=== PATIENT | female | born 1985 | race Hispanic/Latino ===

== ENCOUNTER → 2018-11-02 | Day surgery (SDC) | payer SELFPAY ==
[~2018-11-02] MED LIST: ADDERALL 30 MG30 MG PO; BACITRACIN 50,000 UNIT VIAL ONE; CEFAZOLIN SOD 1 GM VIAL ONE; CEFAZOLIN SOD 2 GM/D5W 50ML 50 ML IV ONE; DEXAMETHASONE SOD PHOS INJ 4 MG/ML VIAL ONE; FENTANYL CITRATE/PF 100MCG/2 ML INJ ONE; GENTAMICIN SULFATE 40 MG/ML 2 ML VIAL ONE; HYDROMORPHONE 2MG/ML 2 MG/ML ML ONE; IBUPROFEN 800MG/ 250ML 250 ML IV ONE; LIDOCAINE HCL 2% LOCAL INJ 5 ML SDV VIAL INJ ONE; MIDAZOLAM HCL 2 MG/2 ML VIAL ONE; ONDANSETRON HCL INJ 2MG/ML 2ML 2 MG/ML VIAL ONE; PROPOFOL IV EMULSION 10 MG/ML 20 ML VIAL ONE; SEVOFLURANE INHAL SOLN 250 ML PEN BTL ONE
--- OUTSIDE RECORDS SUMMARY | 2018-11-02 05:43 | XMS REPORT | Clinical Summary ---
Author Author [facility] Address Unknown Phone Unavailable Care Team Providers Care Blade Boner Name Role Phone Otilio Horn MD PCP Unavailable Allergies No Known Allergies Medications No known medications Active Problems No known active problems Encounters Care Team Description Date Type Specialty [facility] Physical exam (Primary Dx) 07/14/2018 [facility] Otilio Horn MD Abnormal mammogram 07/08/2018 Hospital Radiology Encounter Karon Jalloh MD Physical exam (Primary Dx) 07/02/2018 [facility] Physical Otilio Horn MD 06/29/2018 Hospital Radiology Encounter Otilio Horn MD 06/29/2018 [facility] Radiology Encounter Otilio Horn MD Abnormal mammogram (Primary Dx) 06/28/2018 Transcribe Access Orders Otilio Horn MD 12/30/2017 Hospital Radiology Encounter Otilio Horn MD 12/30/2017 Hospital Radiology Encounter Otilio Horn MD Mastodynia (Primary Dx) 12/30/2017 Transcribe Access Orders Otilio Horn MD Cervicalgia (Primary Dx) 12/28/2017 Transcribe Access Orders after 11/01/2017 Family History Medical History Relation Name Comments No Known Problems Father No Known Problems Mother Relation Name Status Comments Father Alive Mother Alive Social History Date Tobacco Use Types Packs/Day Years Used Never Smoker Smokeless Tobacco: Never Used Alcohol Use Drinks/Week oz/Week Comments Yes Sex Assigned at Date Recorded Not on file Industry Job Start Date Occupation Not on file Not on file Not on file Travel End Travel History Travel Start No recent travel history available. Last Filed Vital Signs Time Taken Vital Sign Reading 07/02/2018 9:09 AM COMPUTER HARDWARE ENGINEER Blood Pressure 102/68 07/02/2018 9:09 AM COMPUTER HARDWARE ENGINEER Pulse 80 - Temperature - - Respiratory Rate - - Oxygen Saturation - - Inhaled Oxygen - Concentration 07/02/2018 9:09 AM COMPUTER HARDWARE ENGINEER Weight 48.6 kg (107 lb 3.2 oz) 07/02/2018 9:09 AM COMPUTER HARDWARE ENGINEER Height 152.4 cm (5') 07/02/2018 9:09 AM COMPUTER HARDWARE ENGINEER Body Mass Index 20.94 Plan of Treatment Health Maintenance Due Date Last Done Comments INFLUENZA VACCINE 12/23/2018 Procedures Comments Procedure Name Priority Date/Time Associated Diagnosis COMPREHENSIVE METABOLIC Routine 07/14/2018 Physical exam PANEL 10:21 AM COMPUTER HARDWARE ENGINEER URINALYSIS, AUTOMATED Routine 07/14/2018 Physical exam WITH MICROSCOPY 10:21 AM COMPUTER HARDWARE ENGINEER CBC WITH PLATELET AND Routine 07/14/2018 Physical exam DIFFERENTIAL 10:21 AM COMPUTER HARDWARE ENGINEER LIPID PANEL Routine 07/14/2018 Physical exam 10:21 AM COMPUTER HARDWARE ENGINEER MRI BREAST WO CONTRAST Routine 07/08/2018 Abnormal mammogram BILATERAL 10:16 AM COMPUTER HARDWARE ENGINEER HEMOGLOBIN A1C Routine 07/02/2018 Physical exam 8:56 AM COMPUTER HARDWARE ENGINEER COMPREHENSIVE METABOLIC Routine 07/02/2018 Physical exam PANEL 8:56 AM COMPUTER HARDWARE ENGINEER URINALYSIS, AUTOMATED Routine 07/02/2018 Physical exam WITH MICROSCOPY 8:56 AM COMPUTER HARDWARE ENGINEER T4, FREE Routine 07/02/2018 Physical exam 8:56 AM COMPUTER HARDWARE ENGINEER THYROID STIMULATING Routine 07/02/2018 Physical exam HORMONE 8:56 AM COMPUTER HARDWARE ENGINEER CBC WITH PLATELET AND Routine 07/02/2018 Physical exam DIFFERENTIAL 8:56 AM COMPUTER HARDWARE ENGINEER LIPID PANEL Routine 07/02/2018 Physical exam 8:56 AM COMPUTER HARDWARE ENGINEER MAMMO EXTERNAL STUDY Routine 06/29/2018 12:49 PM COMPUTER HARDWARE ENGINEER US BREAST EXTERNAL STUDY Routine 06/29/2018 12:44 PM COMPUTER HARDWARE ENGINEER US BREAST EXTERNAL STUDY Routine 12/30/2017 11:33 AM CDT MAMMO EXTERNAL STUDY Routine 12/30/2017 11:32 AM CDT after 11/01/2017 Results * Urinalysis, automated with microscopy (07/14/2018 10:21 AM COMPUTER HARDWARE ENGINEER) Only the most recent of 2 results within the time period is included. Color, UA YELLOW YELLOW [facility] [place] Appearance CLEAR CLEAR [facility] [place] Specific 1.017 1.001 - 1.035 [facility] gravity, urine [facility] [place] pH, urine 6.0 5.0 - 8.0 [facility] [place] Glucose, urine NEGATIVE NEGATIVE [facility] [place] Bilirubin, UA NEGATIVE NEGATIVE [facility] [place] Ketones, UA NEGATIVE NEGATIVE [facility] [place] Occult blood, NEGATIVE NEGATIVE [facility] urine [facility] [place] Protein, UA NEGATIVE NEGATIVE [facility] [place] Nitrite, UA NEGATIVE NEGATIVE [facility] [place] Leukocyte NEGATIVE NEGATIVE [facility] esterase, UA [facility] [place] WBC, UA 0-5 < OR=5 /HPF [facility] [place] RBC, UA NONE SEEN < OR=2 /HPF [facility] [place] Squamous 0-5 < OR=5 /HPF [facility] epithelial [facility]AGNOSTICS cells, UA [place] Bacteria, UA NONE SEEN NONE SEEN /HPF [facility] [place] Hyaline casts, NONE SEEN NONE SEEN /LPF [facility] UA [facility] [place] Specimen Blood Resulting Agency Comment Performing Organization Information: Site ID: [id number] Name: [facility] Address: [address] [place] [phone] Director: Jenna Quan Performing Organization Address City/State/Zipcode Phone Number [facility] [address] [address] * CBC with platelet and differential (07/14/2018 10:21 AM COMPUTER HARDWARE ENGINEER) Only the most recent of 2 results within the time period is included. WBC 5.0 3.8 - 10.8 [facility] Thousand/uL [employer] [place] RBC 4.12 3.80 - 5.10 [facility] Million/uL [facility] [place] HGB 13.8 11.7 - 15.5 g/dL [facility] [place] HCT 40.6 35.0 - 45.0 % [facility] [place] MCV 98.5 80.0 - 100.0 fL [facility] [place] MCH 33.5 (H) 27.0 - 33.0 pg [facility] [place] MCHC 34.0 32.0 - 36.0 g/dL [facility] RDW 11.8 11.0 - 15.0 % [facility] [place] Platelet count 247 140 - 400 [facility] Thousand/uL [facility] MPV 10.1 7.5 - 12.5 fL [facility] [place] Neutrophils, 2,420 1,500 - 7,800 [facility] absolute cells/uL [facility] [place] Lymphocytes, 2,010 850 - 3,900 cells/uL [facility] absolute [facility] [place] Monocytes, 410 200 - 950 cells/uL [facility] absolute [facility] [place] Eosinophils, 110 15 - 500 cells/uL [facility] absolute [facility] [place] Basophils, 50 0 - 200 cells/uL [facility] absolute [facility] [place] Neutrophils 48.4 % [facility] Lymphocytes 40.2 % [facility] [place] Monocytes 8.2 % [facility] [place] Eosinophils 2.2 % [employer] [place] Basophils + RC 1.0 % [employer] [place] Specimen Blood Resulting Agency Comment Performing Organization Information: Site ID: [id number] Name: [facility] Address: [address] [place] [phone] Director: Jenna Quan Performing Organization Address City/State/Zipcode Phone Number [place] [phone] * Lipid panel (07/14/2018 10:21 AM COMPUTER HARDWARE ENGINEER) Only the most recent of 2 results within the time period is included. [facility] Cholesterol, 182 <200 mg/dL [facility] total [facility] [place] HDL cholesterol 76 >50 mg/dL [facility] [place] Triglycerides 62 <150 mg/dL [facility] LDL cholesterol 92 mg/dL (calc) [facility] calculated Comment: DIAGNOSTICS Reference range: <100 [place] Desirable range <100 mg/dL for primary prevention; <70 mg/dL for patients with CHD or diabetic patients with > or=2 CHD risk factors. LDL-C is now calculated using the Vinod-Tarsha calculation, which is a validated novel method providing better accuracy than the Friedewald equation in the estimation of LDL-C. Vinod SS et al. MAGDY. 2013;310(19): 6820-4536 (http://education.Typesafe.com/faq/KIJ428) Cholesterol/HDL 2.4 <5.0 (calc) [facility] ratio [facility] [place] Non-HDL 106 <130 mg/dL (calc) [facility] cholesterol Comment: DIAGNOSTICS For patients with diabetes [place] plus 1 major ASCVD risk factor, treating to a non-HDL-C goal of <100 mg/dL (LDL-C of <70 mg/dL) is considered a therapeutic option. Specimen Blood Resulting Agency Comment Performing Organization Information: Site ID: [id number] Name: [facility] Address: [address] [place] [address] Director: Jenna Quan Performing Organization Address City/State/Zipcode Phone Number [facility] [address] [place] [address] * Comprehensive metabolic panel (07/14/2018 10:21 AM COMPUTER HARDWARE ENGINEER) Only the most recent of 2 results within the time period is included. Glucose 105 (H) 65 - 99 mg/dL [facility] Comment: DIAGNOSTICS [facility] reference interval For someone without known diabetes, a glucose value between 100 and 125 mg/dL is consistent with prediabetes and should be confirmed with a follow-up test. BUN, whole 11 7 - 25 mg/dL [facility] blood [facility] Creatinine 0.64 0.50 - 1.10 mg/dL [facility] EGFR Non-Afr. 117 > OR=60 [facility] [place]ian mL/min/1.73m2 [facility] [place] EGFR 136 > OR=60 [facility] [place] mL/min/1.73m2 [facility] [place] BUN/creatinine NOT APPLICABLE 6 - 22 (calc) [facility] ratio [facility] Sodium 140 135 - 146 mmol/L [facility] [place] Potassium 4.6 3.5 - 5.3 mmol/L [facility] [place] Chloride 104 98 - 110 mmol/L [facility] [place] CO2 29 20 - 32 mmol/L [facility] [place] Calcium 9.2 8.6 - 10.2 mg/dL [facility] [place] Protein 7.4 6.1 - 8.1 g/dL [facility] [place] Albumin, S 4.6 3.6 - 5.1 g/dL [facility] [place] Globulin, total 2.8 1.9 - 3.7 g/dL [facility] (calc) [facility] Albumin/globuli 1.6 1.0 - 2.5 (calc) [facility] n ratio [facility] Total bilirubin 0.6 0.2 - 1.2 mg/dL [facility] [place] Alkaline 47 33 - 115 U/L [facility] phosphatase [facility] AST 20 10 - 30 U/L [facility] [place] ALT 19 6 - 29 U/L [facility] Specimen Blood Resulting Agency Comment Performing Organization Information: Site ID: [id number] Name: [facility] Address: [address] [place] [phone] Director: Jenna Quan Performing Organization Address [facility] Phone Number [facility] [place] [address] [place] [phone] * MRI Breast Wo Contrast Bilateral (07/08/2018 10:16 AM COMPUTER HARDWARE ENGINEER) Specimen Narrative Performed At [facility] EXAMINATION:MRI BREAST WO CONTRAST BILATERAL INDICATIONS:R92.8 Other abnormal and inconclusive findings on diagnostic imaging of breast, ABNORMAL MAMMO CLINICAL HISTORY: 33-year-old female with history of bilateral breast augmentation in 2008 and anesthesia of the left breast following chest tube placement for trauma. COMPARISON:None. Correlation is made with outside mammogram dated 12/22/2017. TECHNIQUE: Multi-sequence multiplanar images of both breasts were obtained without intravenous gadolinium according to an implant rupture protocol. This examination is nondiagnostic for the exclusion of malignancy. FINDINGS: The breast composition is extremely fibroglandular tissue. Bilateral retropectoral silicone implants appear intact. IMPRESSION: No specific MR features of intracapsular or extracapsular silicone implant rupture at this time. Further clinical management of the patient's left breast symptoms is recommended. RECOMMENDATION: Correlation with physical examination and annual screening mammography for which the patient will be due November 2018. [id number] Performing Organization Address [facility] Cent[facility]ode Phone Number [facility] [address] [place] [address] * Thyroid stimulating hormone (07/02/2018 8:56 AM COMPUTER HARDWARE ENGINEER) TSH 3.13 mIU/L [facility] Comment: DI[facility]NOSTICS Reference [place] Range > or=20 Years0.40-4.50 Ranges First trimester0.26-2.66 Second trimester 0.55-2.73 Third trimester0.43-2.91 Specimen Blood Resulting Agency Comment Performing Organization Information: Site ID: [id number] Name: [facility] Address: [address] [place] [phone] Director: Jenna uQan Performing Organization Address [facility]/Zipcode Phone Number Mobile [facility] [place] [address] [place] [phone] * T4, free (07/02/2018 8:56 AM COMPUTER HARDWARE ENGINEER) T4, free 1.0 0.8 - 1.8 ng/dL [facility] [place] Specimen Blood Resulting Agency Comment Performing Organization Information: Site ID: [id number] Name: [facility] Address: [address] [place] [phone] Director: Jenna Quan Performing Organization Address City/State/Zipcode Phone Number [facility] [place] [phone] * Hemoglobin A1c (07/02/2018 8:56 AM COMPUTER HARDWARE ENGINEER) Hemoglobin A1C 5.3 <5.7 % of total Hgb [facility] Comment: DIAGNOSTICS For the purpose of screening [place] for the presence of diabetes: <5.7% Consistent with the absence of diabetes 5.7-6.4%Consistent with increased risk for diabetes (predi abetes) > or=6.5%Consistent with diabetes This assay result is consistent with a decreased risk of diabetes. Currently, no consensus exists regarding use of hemoglobin A1c for diagnosis of diabetes in children. According to [place] Diabetes Association (ADA) guidelines, hemoglobin A1c <7.0% represents optimal control in non- diabetic patients. Different metrics may apply to specific patient populations. Standards of Medical Care in Diabetes(ADA). Specimen Blood Resulting Agency Comment Performing Organization Information: Site ID: [id number] Name: [facility] Address: [address] [place] [phone] Director: Jenna Quan Performing Organization Address [facility] Cent[facility]ode Phone Number [facility] [address] [phone] * Mammo External Study (06/29/2018 12:49 PM COMPUTER HARDWARE ENGINEER) Only the most recent of 2 results within the time period is included. Specimen Narrative Performed At This exam was not acquired at a [facility] facility and has not been [facility] interpreted by a [facility] Provider.The exam was imported into our imaging system for comparisons purposes. Performing Organization Address City/State/Zipcode Phone Number [facility] [address] [place] [address] * US Breast External Study (06/29/2018 12:44 PM COMPUTER HARDWARE ENGINEER) Only the most recent of 2 results within the time period is included. Specimen Narrative Performed At This exam was not acquired at a [facility] facility and has not been [facility] interpreted by a [facility] Provider.The exam was imported into our imaging system for comparisons purposes. Performing Organization Address City/State/Zipcode Phone Number [facility] [address] [place] [address] after 11/01/2017 Insurance Type Payer Benefit Subscriber ID Effective Phone Address Plan / Dates Group PPO AETNA AETNA PPO xxxxxxxxxx [id number] OPEN resent CHOICE
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
--- OUTSIDE RECORDS SUMMARY | 2018-11-02 05:44 | XMS REPORT | CCD ---
Author Author Auto Generated Organization [facility] Address Unknown Phone Unavailable Care Team Providers Care Distribution Manager Name Role Phone Minesh Lorenzo CP Allergies, Adverse Reactions, Alerts Substance Reaction Status NKDA Active Medications Medication Instructions Start Date End Date Status ipratropium 0.5 mg, 2.5 mL, Route: NEB, Drug 05/09/2011 05/09/2011 Completed form: SOLN, Q15Min, Priority: STAT, Start date: 05/09/11 16:40:00, Duration: 2 doses or times, Stop date: 05/09/11 16:55:00 albuterol 0.083% 2.49 mg, Route: NEB, Drug form: 05/09/2011 05/09/2011 Completed inhalation solution SOLN, ONCE, Start date: 05/09/11 16:40:00, Stop date: 05/09/11 16:40:00 albuterol 0.083% 2.49 mg, Route: NEB, Drug form: 05/09/2011 05/09/2011 Completed inhalation solution SOLN, ONCE, Start date: 05/09/11 16:40:00, Stop date: 05/09/11 16:40:00 Sodium Chloride 0.9% 1,000 mL, Rate: 1,000 ml/hr, Infuse 05/09/2011 05/09/2011 Completed (Bolus) IV 1000 mL over: 1 hr, Route: IV, Total Volume: 1,000, Bolus Dose, Priority: STAT, Start date: 05/09/11 16:39:00, Duration: 1 doses or times, Stop date: 05/09/11 17:38:00 Medrol Dosepak 4 mg As directed on package 05/09/2011 05/15/2011 Ordered Tablet instructions, PO, Daily, 1 Pack, Substitution Allowed, Take with or without food Take with or without food albuterol 90 mcg/inh 1 puff, INHALATION, QID, PRN, 1 ea, 05/09/2011 Ordered inhalation aerosol wheezing, Substitution Allowed, Maintenance Azithromycin 5 Day 250 mg, 1 tab, PO, Daily, 1 tab, 05/09/2011 Ordered Dose Pack 250 mg Substitution Allowed, TAKE 1 TABLET oral tablet DAILY ON DAYS 2 - 5 TAKE 1 TABLET DAILY ON DAYS 2 - 5 Vital Signs Most recent to oldest [Reference Range]: 1 2 3 Height 149.86 cm (05/09/2011 16:05:00) Temperature Oral [96.4-99.1 DegF] 98.1 DegF (05/09/2011 18:23:00) 98.7 DegF (05/09/2011 16:26:00) 98.7 DegF (05/09/2011 16:05:00) Systolic Blood Pressure [90-140 mmHg] 133 mmHg (05/09/2011 18:23:00) 126 mmHg (05/09/2011 16:26:00) 125 mmHg (05/09/2011 16:05:00) Diastolic Blood Pressure [60-90 mmHg] 71 mmHg (05/09/2011 18:23:00) 56 mmHg *LOW* (05/09/2011 16:26:00) 82 mmHg (05/09/2011 16:05:00) Respiratory Rate [14-20 BRMIN] 16 BRMIN (05/09/2011 18:23:00) 24 BRMIN *HI* (05/09/2011 16:26:00) 18 BRMIN (05/09/2011 16:05:00) Peripheral Pulse Rate [60-100 bpm] 100 bpm (05/09/2011 18:23:00) 106 bpm *HI* (05/09/2011 16:26:00) 100 bpm (05/09/2011 16:05:00) Weight 59.091 kg (05/09/2011 16:05:00) Results CHEMISTRY Most recent to oldest [Reference Range]: 1 Sodium Lvl [135-145 mEq/L] 140 mEq/L (05/09/2011 17:15:00) Potassium Lvl [3.5-5.1 mEq/L] 3.8 mEq/L (05/09/2011 17:15:00) Chloride Lvl [95-109 mEq/L] 107 mEq/L (05/09/2011 17:15:00) CO2 [24-32 mEq/L] 23 mEq/L *LOW* (05/09/2011:15:00) AGAP [10.0-20.0 mEq/L] 13.8 mEq/L (05/09/2011:15:00) Creatinine Lvl [0.5-1.4 mg/dL] 0.7 mg/dL (05/09/2011:15:00) BUN [7-22 mg/dL] 9 mg/dL (05/09/2011:15:00) Glucose Lvl 101 mg/dL 1 *NA* (05/09/2011:15:00) Calcium Lvl [8.5-10.5 mg/dL] 8.5 mg/dL (05/09/2011:15:00) S Preg [Negative] Negative *NA* (05/09/2011:15:00) 1Interpretive Data: Reference Ranges : 0 - 7 days : 41 - 90 mg/dL7 days - 150 yrs : 70 - 99 mg/dL (fasting), based on the clinical recommendations of the [place] [employer]. HEMATOLOGY Most recent to oldest [Reference Range]: 1 WBC [3.7-10.4 K/CMM] 9.3 K/CMM (05/09/2011:15:00) RBC [4.20-5.40 M/CMM] 4.06 M/CMM *LOW* (05/09/2011:15:00) Hgb [12.0-16.0 g/dL] 13.5 g/dL (05/09/2011:15:00) Hct [36.0-48.0 %] 38.8 % (05/09/2011:15:00) MCV [81.0-99.0 fL] 95.5 fL (05/09/2011:15:00) MCH [27.0-31.0 pg] 33.3 pg *HI* (05/09/2011:15:00) MCHC [32.0-36.0 g/dL] 34.9 g/dL (05/09/2011:15:00) RDW [11.5-14.5 %] 12.9 % (05/09/2011 17:15:00) Platelet [133-450 K/CMM] 226 K/CMM (05/09/2011 17:15:00) MPV [7.4-10.4 fL] 8.3 fL (05/09/2011 17:15:00) Segs [45.0-75.0 %] 81.1 % *HI* (05/09/2011 17:15:00) Lymphocytes [20.0-40.0 %] 13.1 % *LOW* (05/09/2011 17:15:00) Monocytes [2.0-12.0 %] 5.0 % (05/09/2011 17:15:00) Eosinophils [0.0-4.0 %] 0.4 % (05/09/2011 17:15:00) Basophils [0.0-1.0 %] 0.4 % (05/09/2011 17:15:00) Segs-Bands # [1.5-8.1 K/CMM] 7.5 K/CMM (05/09/2011 17:15:00) Lymphocytes # [1.0-5.5 K/CMM] 1.2 K/CMM (05/09/2011 17:15:00) Monocytes # [0.0-0.8 K/CMM] 0.5 K/CMM (05/09/2011 17:15:00) Eosinophils # [0.0-0.5 K/CMM] 0.0 K/CMM (05/09/2011 17:15:00) Basophils # [0.0-0.2 K/CMM] 0.0 K/CMM (05/09/2011 17:15:00)
--- OUTSIDE RECORDS SUMMARY | 2018-11-02 05:44 | XMS REPORT | Continuity of Care Document ---
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 INDICATION: - Monitoring Chest Tube COMPARISON: 10/29/2017 TECHNIQUE: AP chest FINDINGS: Lines, tubes and hardware: A left-sided thoracostomy tube is stable in position. Lungs and pleura: No definite pneumothorax is seen. Hazy opacity in the left lung base may represent a combination of a small effusion with atelectasis, aspiration, or pneumonia. Mild right basilar atelectasis is seen. Heart and mediastinum: The cardiomediastinal silhouette is unchanged. Bones: The osseous structures are unchanged. IMPRESSION: 1. No significant interval change compared to the prior study. 10/30/2017 - - Read by: Fam Sanchez MD Dictated Date/time: 10/30/17 09:19 Electronically Signed by: Fam Sanchez MD 10/30/17 09:20 FINAL REPORT [facility] HEMATOLOGY Platelet 217 K/CMM 133 - 450 10/29/2017 [facility] HEMATOLOGY RDW 13.1 % 11.5 - 14.5 10/29/2017 [facility] HEMATOLOGY MPV 7.6 fL 7.4 - 10.4 10/29/2017 [facility] HEMATOLOGY MCHC 33.6 g/dL 32.0 - 36.0 10/29/2017 [facility] HEMATOLOGY MCH 33.6 pg 27.0 - 31.0 10/29/2017 [facility] HEMATOLOGY MCV 99.8 fL 80.0 - 98.0 10/29/2017 [facility] HEMATOLOGY Hct 32.5 % 36.0 - 48.0 10/29/2017 [facility] HEMATOLOGY Hgb 10.9 g/dL 12.0 - 16.0 10/29/2017 [facility] HEMATOLOGY RBC 3.25 M/CMM 4.20 - 5.40 10/29/2017 [facility] HEMATOLOGY WBC 7.8 K/CMM 3.7 - 10.4 10/29/2017 [facility] HEMATOLOGY Segs-Bands # 6.6 K/CMM 1.5 - 8.1 10/29/2017 [facility] HEMATOLOGY Basophils 0.3 % 0.0 - 1.0 10/29/2017 [facility] HEMATOLOGY Lymphocytes # 0.4 K/CMM 1.0 - 5.5 10/29/2017 [facility] HEMATOLOGY Eosinophils # 0.2 K/CMM 0.0 - 0.5 10/29/2017 [facility] HEMATOLOGY Monocytes # 0.5 K/CMM 0.0 - 0.8 10/29/2017 [facility] HEMATOLOGY Lymphocytes 5.8 % 20.0 - 40.0 10/29/2017 [facility] HEMATOLOGY Segs 84.3 % 45.0 - 75.0 10/29/2017 [facility] HEMATOLOGY Eosinophils 2.9 % 0.0 - 4.0 10/29/2017 [facility] HEMATOLOGY Monocytes 6.7 % 2.0 - 12.0 10/29/2017 [facility] Chest 1view DX Chest 1view DX EXAM: XR CHEST 1 VIEW DATE: 10/29/2017 3:00 AM CDT INDICATION: - Monitoring Chest Tube COMPARISON: Semierect AP chest x-ray the previous morning TECHNIQUE: AP chest, semierect FINDINGS: Left-sided chest tube is unchanged. There is a hazy opacity in the left lung base, unchanged from the prior exam, which may represent any combination of a small pleural effusion, subsegmental atelectasis, aspiration, or pneumonia. The left upper lung and the right lung are clear. The cardiomediastinal silhouette is normal in size. Musculoskeletal findings are within normal limits. IMPRESSION: No change from prior exam. 10/29/2017 - - Read by: Gomez Perdue MD Dictated Date/time: 10/29/17 08:47 Electronically Signed by: Gomez Perdue MD 10/29/17 08:48 FINAL REPORT [facility] Chest 1view DX Chest 1view DX EXAM: XR CHEST 1 VIEW DATE: 10/28/2017 3:00 AM CDT INDICATION: Monitoring Chest Tube - Monitoring Chest Tube COMPARISON: Upright AP chest x-ray the previous evening at 7:27 PM TECHNIQUE: AP chest, semierect FINDINGS: Left-sided chest tube is unchanged. No pneumothorax is appreciated. There is a hazy opacity in the left lung base that blunts the costophrenic sulcus. This opacity is unchanged from the previous exam and likely represents a combination of layering pleural effusion and subsegmental atelectasis. Superimposed consolidation cannot be excluded. Musculoskeletal findings and cardiomediastinal silhouette are stable. Incidental note is made of bilateral silicone breast implants. IMPRESSION: No significant change from prior exam. 10/28/2017 - - Read by: Gomez Perdue MD Dictated Date/time: 10/28/17 10:48 Electronically Signed by: Gomez Perdue MD 10/28/17 10:50 FINAL REPORT [facility] CHEM PANEL eGFR 108 mL/min/1.73m2 10/27/2017 Result Comment: The eGFR is calculated using the [...] from the National Kidney Disease Education Program (NKDEP) which additionally recommends that when the eGFR is used in patients with extremes of body mass index for purposes of drug dosing, the eGFR should be multiplied by the estimated BMI. [facility] CHEM PANEL Chloride Lvl 104 meq/L 95 - 109 10/27/2017 [facility] CHEM PANEL BUN 6 mg/dL 7 - 22 10/27/2017 [facility] CHEM PANEL Creatinine Lvl 0.74 mg/dL 0.50 - 1.40 10/27/2017 [facility] CHEM PANEL Sodium Lvl 136 meq/L 135 - 145 10/27/2017 [facility] CHEM PANEL Potassium Lvl 3.7 meq/L 3.5 - 5.1 10/27/2017 [facility] CHEM PANEL Glucose Lvl 139 mg/dL 70 - 99 10/27/2017 [facility] CHEM PANEL CO2 23 meq/L 24 - 32 10/27/2017 [facility] CHEM PANEL Calcium Lvl 8.9 mg/dL 8.5 - 10.5 10/27/2017 [facility] CHEM PANEL AGAP 12.7 meq/L 10.0 - 20.0 10/27/2017 [facility] HEMATOLOGY Lymphocytes # 0.5 K/CMM 1.0 - 5.5 10/27/2017 [facility] HEMATOLOGY Segs-Bands # 11.3 K/CMM 1.5 - 8.1 10/27/2017 [facility] HEMATOLOGY Basophils 0.3 % 0.0 - 1.0 10/27/2017 [facility] HEMATOLOGY Monocytes # 0.4 K/CMM 0.0 - 0.8 10/27/2017 [facility] HEMATOLOGY Monocytes 3.3 % 2.0 - 12.0 10/27/2017 [facility] HEMATOLOGY Lymphocytes 3.9 % 20.0 - 40.0 10/27/2017 [facility] HEMATOLOGY Segs 91.5 % 45.0 - 75.0 10/27/2017 [facility] HEMATOLOGY Eosinophils 1.0 % 0.0 - 4.0 10/27/2017 [facility] HEMATOLOGY Eosinophils # 0.1 K/CMM 0.0 - 0.5 10/27/2017 [facility] HEMATOLOGY Macrocyte 1+ *ABN* (10/27/17 3:01 PM) None Seen 10/27/2017 [facility] HEMATOLOGY MCHC 34.0 g/dL 32.0 - 36.0 10/27/2017 [facility] HEMATOLOGY RDW 12.9 % 11.5 - 14.5 10/27/2017 [facility] HEMATOLOGY Platelet 188 K/CMM 133 - 450 10/27/2017 [facility] HEMATOLOGY MPV 8.1 fL 7.4 - 10.4 10/27/2017 [facility] HEMATOLOGY WBC 12.3 K/CMM 3.7 - 10.4 10/27/2017 [facility] HEMATOLOGY Hgb 12.5 g/dL 12.0 - 16.0 10/27/2017 [facility] HEMATOLOGY RBC 3.67 M/CMM 4.20 - 5.40 10/27/2017 [facility] HEMATOLOGY MCV 100.3 fL 80.0 - 98.0 10/27/2017 [facility] HEMATOLOGY Hct 36.8 % 36.0 - 48.0 10/27/2017 [facility] HEMATOLOGY MCH 34.1 pg 27.0 - 31.0 10/27/2017 [facility] Chest 1view DX Chest 1view DX EXAM: XR CHEST 1 VIEW DATE: 10/27/2017 1927 hours INDICATION: - SOB. COMPARISON: Same day radiograph at 1543 hours FINDINGS: Left chest tube is unchanged in position. There is interval improvement in the left pneumothorax, nearly resolved. Cardiomediastinal silhouette is stable. There is a small left pleural effusion with basilar subsegmental atelectasis. The right lung is clear. No acute osseous changes seen. IMPRESSION: Nearly resolved left apical pneumothorax. Small residual left pleural effusion with a left chest tube in place. Left lower lobe platelike atelectasis. 10/27/2017 - - Read by: Teodoro Duque Dictated Date/time: 10/27/17 19:44 Electronically Signed by: Teodoro Duque 10/27/17 19:51 FINAL REPORT [facility] Chest 1view DX Chest 1view DX EXAM: XR CHEST 1 VIEW DATE: 10/27/2017 3:00 PM CDT INDICATION: - L PTX COMPARISON: 10/27/2017 at 4:30 AM TECHNIQUE: AP chest IMPRESSION: 1. Small left apical pneumothorax is noted. Left thoracostomy tube again seen in the same position. 2. Minimal left basilar retrocardiac changes. Otherwise, lungs are clear. Costophrenic sulci are sharp. 3. Cardiomediastinal silhouette is normal for technique. 4. Osseous structures are stable. 10/27/2017 - - Read by: Cristobal Maldonado MD Dictated Date/time: 10/27/17 16:07 Electronically Signed by: Cristobal Maldonado MD 10/27/17 16:08 FINAL REPORT [facility] Chest 1view DX Chest 1view DX EXAM: XR CHEST 1 VIEW DATE: 10/27/2017 3:00 AM CDT INDICATION: Monitoring Chest Tube - Monitoring Chest Tube. FINDINGS: Comparison is made to October 26. Cardiomediastinal silhouette is stable. There is a small left pleural effusion located laterally. Left-sided chest tube remains in place. There is platelike atelectasis in the left lower lobe. IMPRESSION: 1. Small left pleural effusion, with left apical chest tube in place. 2. Left lower lobe platelike atelectasis. 10/27/2017 - - Read by: Inez Gunderson MD Dictated Date/time: 10/27/17 08:40 Electronically Signed by: Inez Gunderson MD 10/27/17 10:12 FINAL REPORT [facility] Chest 2 views DX Chest 2 views DX EXAM: XR CHEST 2 VIEWS DATE: 10/26/2017 6:48 PM CDT INDICATION: - Sharp pain associated with CT. Please evaluate position of CT in 2 views COMPARISON: Upright AP chest x-ray earlier the same day at 5:43 PM TECHNIQUE: PA and lateral chest radiographs FINDINGS: Lines, tubes and hardware: Left-sided chest tube is unchanged. Lungs and pleura: No pulmonary or pleural based abnormality is identified. Specifically no pneumothorax is seen Pulmonary vascularity is normal. Heart and mediastinum: The heart size is normal for technique. The mediastinal contours are normal. Bones: No acute bony abnormality is identified. IMPRESSION: No change from prior exam. Lungs are clear and there is no pneumothorax appreciated 10/26/2017 - - Read by: Gomez Perdue MD Dictated Date/time: 10/27/17 08:17 Electronically Signed by: Gomez Perdue MD 10/27/17 08:18 FINAL REPORT [facility] Chest 1view DX Chest 1view DX EXAM: XR CHEST 1 VIEW DATE: 10/26/2017 1743 PM CDT INDICATION: - Acute chest pain COMPARISON: 10/26/2017, 0111 hours TECHNIQUE: AP chest FINDINGS: A left chest tube with its tip projecting over the lung apex is unchanged in position. No large pneumothorax seen on this semierect imaged. No pulmonary or pleural-based abnormality is identified. Pulmonary vascularity is normal. The heart size is normal for technique. No acute bony abnormality is identified. IMPRESSION: No significant interval change. 10/26/2017 - - Read by: Allie Angel MD Dictated Date/time: 10/26/17 19:18 Electronically Signed by: Allie Angel MD 10/26/17 19:19 FINAL REPORT [facility] Chest 1view DX Chest 1view DX EXAM: XR CHEST 1 VIEW DATE: 10/26/2017 INDICATION: - Monitoring Chest Tube . Comparison is made with yesterday FINDINGS: The heart is not enlarged. Costophrenic sulci are sharp. The left apical chest tube is unchanged. No pneumothorax is visualized however a supine or semierect radiograph is suboptimal for that determination. An erect film of the chest is necessary in order to exclude small pneumothoraces.. The lungs are clear IMPRESSION: No significant interval change when compared to prior radiograph. 10/26/2017 - - Read by: Virginia Prado MD Dictated Date/time: 10/26/17 10:04 Electronically Signed by: Virginia Prado MD 10/26/17 10:04 FINAL REPORT [facility] Chest 1view DX Chest 1view DX EXAM: XR CHEST 1 VIEW DATE: 10/25/2017 3:00 AM CDT INDICATION: - Monitoring Chest Tube. FINDINGS: Comparison is made to yesterday. Cardiomediastinal silhouette is unchanged. The lungs are clear. No pleural effusion or pneumothorax identified. Left apical chest tube remains in place. IMPRESSION: No pneumothorax identified. Left apical chest tube in place. 10/25/2017 - - Read by: Inez Gunderson MD Dictated Date/time: 10/25/17 14:03 Electronically Signed by: Inez Gunderson MD 10/25/17 14:03 FINAL REPORT [facility] Chest 1view DX Chest 1view DX EXAM: XR CHEST 1 VIEW DATE: 10/24/2017 3:00 AM CDT INDICATION: - pneumothorax follow up. FINDINGS: Comparison is made to October 23. Cardiomediastinal silhouette is unchanged. Lungs are clear and well-expanded. No pleural effusions. Left apical chest tube in place. IMPRESSION: No significant change. 10/24/2017 - - Read by: Inez Gunderson MD Dictated Date/time: 10/24/17 16:15 Electronically Signed by: Inez Gunderson MD 10/24/17 16:23 FINAL REPORT [facility] DRUG SCREEN U Amph Scr Negative *NA* (10/23/17 7:41 PM) Negative 10/24/2017 [facility] DRUG SCREEN U Cocaine Scr Negative *NA* (10/23/17 7:41 PM) Negative 10/24/2017 [facility] DRUG SCREEN U Benzodia Scr Negative *NA* (10/23/17 7:41 PM) Negative 10/24/2017 [facility] DRUG SCREEN U Lynn Scr Negative *NA* (10/23/17 7:41 PM) Negative 10/24/2017 [facility] DRUG SCREEN U Phencyc Scr Negative *NA* (10/23/17 7:41 PM) Negative 10/24/2017 [facility] DRUG SCREEN U Cannab Scr Negative *NA* (10/23/17 7:41 PM) Negative 10/24/2017 [facility] DRUG SCREEN U Opiate Scr Negative *NA* (10/23/17 7:41 PM) Negative 10/24/2017 [facility] DRUG SCREEN UDS Note See Note *NA* (10/23/17 7:41 PM) 10/24/2017 [facility] URINE AND STOOL UA Bili Negative *NA* (10/23/17 7:41 PM) Negative 10/24/2017 [facility] URINE AND STOOL UA Ketones 100 mg/dL Negative mg/dL 10/24/2017 [facility] URINE AND STOOL UA Glucose Negative mg/dL Negative mg/dL 10/24/2017 [facility] URINE AND STOOL UA Urobilinogen 2.0 mg/dL 0.1 - 1.0 10/24/2017 [facility] URINE AND STOOL UA Mucus Few /LPF None Seen /LPF 10/24/2017 [facility] URINE AND STOOL UA WBC 2 /HPF 0 - 5 10/24/2017 [facility] URINE AND STOOL UA Leuk Est Negative (10/23/17 7:41 PM) Negative 10/24/2017 [facility] URINE AND STOOL UA Nitrite Negative (10/23/17 7:41 PM) Negative 10/24/2017 [facility] URINE AND STOOL UA Color Yellow *NA* (10/23/17 7:41 PM) Yellow 10/24/2017 [facility] URINE AND STOOL UA Turbidity Clear (10/23/17 7:41 PM) Clear 10/24/2017 [facility] URINE AND STOOL UA Spec Grav 1.017 <=1.030 10/24/2017 [facility] URINE AND STOOL UA Protein 20 mg/dL Negative mg/dL 10/24/2017 [facility] URINE AND STOOL UA pH 6.5 5.0 - 8.0 10/24/2017 [facility] URINE AND STOOL UA Blood Negative (10/23/17 7:41 PM) Negative 10/24/2017 [facility] URINE AND STOOL UA Sq Epi None Seen 10/24/2017 [facility] Ankle 3 views DX Ankle 3 views DX EXAM: XR LEFT TIBIA-FIBULA 2 VIEWS EXAM: XR LEFT ANKLE 3 VIEWS EXAM: XR LEFT FOOT 3 VIEWS DATE: 10/23/2017 5:45 PM CDT INDICATION: - Left roberts pain and swelling. COMPARISON: None. TECHNIQUE: 2 views of the tibia-fibula, 3 views of the ankle, 3 views of the foot. FINDINGS: Tibia-fibula: No acute fracture or malalignment is identified. Ankle: Nondisplaced fracture of the dorsomedial anterior calcaneal process. The ankle mortise is congruent. Foot: No acute fracture or malalignment is identified. A small bony fragment along the medial and dorsal aspects of the 1st TMT joint with sclerotic margins is likely related to a remote injury. Soft tissues: Focal soft tissue swelling along the dorsal aspect of the talus and navicular bones. IMPRESSION: Nondisplaced fracture of the dorsomedial anterior calcaneal process. 10/23/2017 - - Read by: Allie Angel MD Dictated Date/time: 10/23/17 22:14 Electronically Signed by: Allie Angel MD 10/23/17 22:19 FINAL REPORT [facility] Foot series DX Foot series DX EXAM: XR LEFT TIBIA-FIBULA 2 VIEWS EXAM: XR LEFT ANKLE 3 VIEWS EXAM: XR LEFT FOOT 3 VIEWS DATE: 10/23/2017 5:45 PM CDT INDICATION: - Left roberts pain and swelling. COMPARISON: None. TECHNIQUE: 2 views of the tibia-fibula, 3 views of the ankle, 3 views of the foot. FINDINGS: Tibia-fibula: No acute fracture or malalignment is identified. Ankle: Nondisplaced fracture of the dorsomedial anterior calcaneal process. The ankle mortise is congruent. Foot: No acute fracture or malalignment is identified. A small bony fragment along the medial and dorsal aspects of the 1st TMT joint with sclerotic margins is likely related to a remote injury. Soft tissues: Focal soft tissue swelling along the dorsal aspect of the talus and navicular bones. IMPRESSION: Nondisplaced fracture of the dorsomedial anterior calcaneal process. 10/23/2017 - - Read by: Allie Angel MD Dictated Date/time: 10/23/17 22:14 Electronically Signed by: Allie Angel MD 10/23/17 22:19 FINAL REPORT [facility] Tibia fibula series DX Tibia fibula series DX EXAM: XR LEFT TIBIA-FIBULA 2 VIEWS EXAM: XR LEFT ANKLE 3 VIEWS EXAM: XR LEFT FOOT 3 VIEWS DATE: 10/23/2017 5:45 PM CDT INDICATION: - Left roberts pain and swelling. COMPARISON: None. TECHNIQUE: 2 views of the tibia-fibula, 3 views of the ankle, 3 views of the foot. FINDINGS: Tibia-fibula: No acute fracture or malalignment is identified. Ankle: Nondisplaced fracture of the dorsomedial anterior calcaneal process. The ankle mortise is congruent. Foot: No acute fracture or malalignment is identified. A small bony fragment along the medial and dorsal aspects of the 1st TMT joint with sclerotic margins is likely related to a remote injury. Soft tissues: Focal soft tissue swelling along the dorsal aspect of the talus and navicular bones. IMPRESSION: Nondisplaced fracture of the dorsomedial anterior calcaneal process. 10/23/2017 - - Read by: Allie Angel MD Dictated Date/time: 10/23/17 22:14 Electronically Signed by: Allie Angel MD 10/23/17 22:19 FINAL REPORT [facility] CHEM PANEL BUN 7 mg/dL 7 - 22 10/23/2017 [facility] CHEM PANEL Glucose Lvl 99 mg/dL 70 - 99 10/23/2017 [facility] CHEM PANEL CO2 24 meq/L 24 - 32 10/23/2017 [facility] CHEM PANEL Calcium Lvl 8.0 mg/dL 8.5 - 10.5 10/23/2017 [facility] CHEM PANEL Chloride Lvl 105 meq/L 95 - 109 10/23/2017 [facility] CHEM PANEL Potassium Lvl 4.0 meq/L 3.5 - 5.1 10/23/2017 [facility] CHEM PANEL Sodium Lvl 140 meq/L 135 - 145 10/23/2017 [facility] CHEM PANEL eGFR 120 mL/min/1.73m2 10/23/2017 Result Comment: The eGFR is calculated using the [...] from the National Kidney Disease Education Program (NKDEP) which additionally recommends that when the eGFR is used in patients with extremes of body mass index for purposes of drug dosing, the eGFR should be multiplied by the estimated BMI. [facility] CHEM PANEL Creatinine Lvl 0.62 mg/dL 0.50 - 1.40 10/23/2017 [facility] CHEM PANEL AGAP 15.0 meq/L 10.0 - 20.0 10/23/2017 [facility] CHEM PANEL Lactic Acid Lvl 2.2 mMol/L 0.5 - 2.2 10/23/2017 [facility] HEMATOLOGY RDW 13.0 % 11.5 - 14.5 10/23/2017 [facility] HEMATOLOGY MCH 33.6 pg 27.0 - 31.0 10/23/2017 [facility] HEMATOLOGY MCHC 34.2 g/dL 32.0 - 36.0 10/23/2017 [facility] HEMATOLOGY Platelet 183 K/CMM 133 - 450 10/23/2017 [facility] HEMATOLOGY MPV 7.9 fL 7.4 - 10.4 10/23/2017 [facility] HEMATOLOGY MCV 98.2 fL 80.0 - 98.0 10/23/2017 [facility] HEMATOLOGY Hct 34.8 % 36.0 - 48.0 10/23/2017 [facility] HEMATOLOGY Hgb 11.9 g/dL 12.0 - 16.0 10/23/2017 [facility] HEMATOLOGY WBC 10.5 K/CMM 3.7 - 10.4 10/23/2017 [facility] HEMATOLOGY RBC 3.54 M/CMM 4.20 - 5.40 10/23/2017 [facility] HEMATOLOGY Basophils # 0.1 K/CMM 0.0 - 0.2 10/23/2017 [facility] HEMATOLOGY Eosinophils 0.1 % 0.0 - 4.0 10/23/2017 [facility] HEMATOLOGY Segs-Bands # 8.5 K/CMM 1.5 - 8.1 10/23/2017 [facility] HEMATOLOGY Monocytes # 0.6 K/CMM 0.0 - 0.8 10/23/2017 [facility] HEMATOLOGY Lymphocytes # 1.3 K/CMM 1.0 - 5.5 10/23/2017 [facility] HEMATOLOGY Basophils 0.7 % 0.0 - 1.0 10/23/2017 [facility] HEMATOLOGY Monocytes 5.5 % 2.0 - 12.0 10/23/2017 [facility] HEMATOLOGY Lymphocytes 12.6 % 20.0 - 40.0 10/23/2017 [facility] HEMATOLOGY Segs 81.1 % 45.0 - 75.0 10/23/2017 [facility] Chest 1view DX Chest 1view DX EXAM: XR CHEST 1 VIEW DATE: 10/23/2017 3:00 AM CDT INDICATION: Abnormal chest sounds - L CT COMPARISON: 10/22/2017 TECHNIQUE: AP chest FINDINGS: Lines and tubes: An apically directed left-sided chest drainage tube is again demonstrated in usual position. Lungs and pleura: No pratik pneumothorax or hemothorax is seen at this time. No other pulmonary or pleural based abnormality is identified. Heart and mediastinum: Unremarkable. Chest wall: Unremarkable. Bones: No acute bony abnormality is identified. IMPRESSION: Relatively unchanged appearance of the chest from the prior study, with usual position of apically directed drainage tube. 10/23/2017 - - Read by: Lawson Rizvi MD Dictated Date/time: 10/23/17 10:31 Electronically Signed by: Lawson Rizvi MD 10/23/17 10:32 FINAL REPORT [facility] BLOOD BANK RESULTS Antibody Scrn Negative (10/22/17 8:19 PM) 10/23/2017 [facility] BLOOD BANK RESULTS ABO/Rh O POS 10/23/2017 [facility] CHEM PANEL Lactic Acid Lvl 2.4 mMol/L 0.5 - 2.2 10/23/2017 [facility] ELECTROLYTES AGAP 17.6 meq/L 10.0 - 20.0 10/23/2017 [facility] ELECTROLYTES Glucose Lvl 97 mg/dL 70 - 99 10/23/2017 [facility] ELECTROLYTES BUN 9 mg/dL 7 - 22 10/23/2017 [facility] ELECTROLYTES Creatinine Lvl 0.70 mg/dL 0.50 - 1.40 10/23/2017 [facility] ELECTROLYTES Sodium Lvl 142 meq/L 135 - 145 10/23/2017 [facility] ELECTROLYTES Chloride Lvl 107 meq/L 95 - 109 10/23/2017 [facility] ELECTROLYTES CO2 21 meq/L 24 - 32 10/23/2017 [facility] ELECTROLYTES Potassium Lvl 3.6 meq/L 3.5 - 5.1 10/23/2017 [facility] ELECTROLYTES Calcium Lvl 8.2 mg/dL 8.5 - 10.5 10/23/2017 [facility] ELECTROLYTES eGFR 115 mL/min/1.73m2 10/23/2017 Result Comment: The eGFR is calculated using the [...] from the National Kidney Disease Education Program (NKDEP) which additionally recommends that when the eGFR is used in patients with extremes of body mass index for purposes of drug dosing, the eGFR should be multiplied by the estimated BMI. [facility] ENDOCRINOLOGY S Preg Negative *NA* (10/22/17 8:19 PM) Negative 10/23/2017 [facility] HEMATOLOGY Basophils # 0.1 K/CMM 0.0 - 0.2 10/23/2017 [facility] HEMATOLOGY R-time Rapid 0.6 min 0.4 - 0.7 10/23/2017 [facility] HEMATOLOGY Angle Rapid 75 degrees 64 - 80 10/23/2017 [facility] HEMATOLOGY [place] Rapid 0.5 min 10/23/2017 [facility] HEMATOLOGY K-time Rapid 1.3 min 0.6 - 2.3 10/23/2017 [facility] HEMATOLOGY Max Amplitude Rapid 64 mm 52 - 71 10/23/2017 [facility] HEMATOLOGY G-value Rapid 8.9 K d/sc 5.0 - 11.6 10/23/2017 [facility] HEMATOLOGY ACT (TEG) Rapid 105 s 86 - 118 10/23/2017 [facility] HEMATOLOGY Estimated % Lysis Rapid 2.6 % 0.0 - 7.5 10/23/2017 [facility] TOXICOLOGY Ethanol Lvl 207 mg/dL 10/23/2017 [facility] TOXICOLOGY Etoh (%) 0.207 % 10/23/2017 [facility] Knee 3 views DX Knee 3 views DX EXAM: XR RIGHT TIBIA-FIBULA 2 VIEWS EXAM: XR RIGHT ANKLE 3 VIEWS EXAM: XR RIGHT FOOT 3 VIEWS EXAM: XR RIGHT KNEE 3 VIEWS DATE: 10/22/2017 10:28 PM CDT INDICATION: - trauma COMPARISON: None. TECHNIQUE: 3 views of the knee, 2 views of the tibia-fibula, 3 views of the ankle, 3 views of the foot. FINDINGS: Knee: No acute fracture or malalignment. No suprapatellar joint effusion. Tibia-fibula: No acute fracture or malalignment is identified. Ankle: No acute fracture or malalignment is identified. The ankle mortise is congruent. Foot: Hairline lucency in the medial cortex of the great toe distal phalanx questionable for fracture. Soft tissues: Mild forefoot soft tissue swelling. IMPRESSION: Hairline lucency in the medial cortex of the great toe distal phalanx questionable for fracture. Mild forefoot soft tissue swelling. This was discussed with Dr. Donovan at 4:43 AM. [place] SECTION: ER 10/22/2017 - - This report was dictated by a Formulation Scientist/Fellow. I have personally reviewed the images as well as the Resident's interpretation and agree with the findings. Read by: Emiliano Stein MD Resident: Emiliano Stein MD Dictated Date/time: 10/22/17 23:02 Electronically Signed by: Chris Oliver 10/23/17 04:44 FINAL REPORT [facility] Ankle 3 views DX Ankle 3 views DX EXAM: XR RIGHT TIBIA-FIBULA 2 VIEWS EXAM: XR RIGHT ANKLE 3 VIEWS EXAM: XR RIGHT FOOT 3 VIEWS EXAM: XR RIGHT KNEE 3 VIEWS DATE: 10/22/2017 10:28 PM CDT INDICATION: - trauma COMPARISON: None. TECHNIQUE: 3 views of the knee, 2 views of the tibia-fibula, 3 views of the ankle, 3 views of the foot. FINDINGS: Knee: No acute fracture or malalignment. No suprapatellar joint effusion. Tibia-fibula: No acute fracture or malalignment is identified. Ankle: No acute fracture or malalignment is identified. The ankle mortise is congruent. Foot: Hairline lucency in the medial cortex of the great toe distal phalanx questionable for fracture. Soft tissues: Mild forefoot soft tissue swelling. IMPRESSION: Hairline lucency in the medial cortex of the great toe distal phalanx questionable for fracture. Mild forefoot soft tissue swelling. This was discussed with Dr. Donovan at 4:43 AM. [place] SECTION: ER 10/22/2017 - - This report was dictated by a Formulation Scientist/Fellow. I have personally reviewed the images as well as the Resident's interpretation and agree with the findings. Read by: Emiliano Stein MD Resident: Emiliano Stein MD Dictated Date/time: 10/22/17 23:02 Electronically Signed by: Chris Oliver 10/23/17 04:44 FINAL REPORT [facility] Tibia fibula series DX Tibia fibula series DX EXAM: XR RIGHT TIBIA-FIBULA 2 VIEWS EXAM: XR RIGHT ANKLE 3 VIEWS EXAM: XR RIGHT FOOT 3 VIEWS EXAM: XR RIGHT KNEE 3 VIEWS DATE: 10/22/2017 10:28 PM CDT INDICATION: - trauma COMPARISON: None. TECHNIQUE: 3 views of the knee, 2 views of the tibia-fibula, 3 views of the ankle, 3 views of the foot. FINDINGS: Knee: No acute fracture or malalignment. No suprapatellar joint effusion. Tibia-fibula: No acute fracture or malalignment is identified. Ankle: No acute fracture or malalignment is identified. The ankle mortise is congruent. Foot: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
[2018-11-02 11:46] VITALS: BP 113/81
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
== END | disposition home or self-care (01) ==
LOC: OR 05:40
PROVIDERS: ATTEND Plastic Surgery
DX: N64.81 Ptosis of breast (principal); T85.44XA Capsular contracture of breast implant, initial encounter; N64.89 Other specified disorders of breast; M54.9 Dorsalgia, unspecified; K21.9 Gastro-esophageal reflux disease without esophagitis; F41.9 Anxiety disorder, unspecified; Y83.1 Surgical operation with implant of artificial internal device as the cause of abnormal reaction of the patient, or of later complication, without mention of misadventure at the time of the procedure
CPT/HCPCS: 19328; 19340; 19370; 19371; 81025; C1789; J0690 ×2; J1100; J1170; J1580; J2001; J2250; J2405; J2704